=== PATIENT | male | born 1950 | race Caucasian/White ===

== ENCOUNTER → 2016-11-24 | Outpatient (CLI) | payer MEDICARE, OTHER ==
[~2016-11-24] MED LIST: ACCUPRIL PO; ALBUTEROL20 ml INH; AMLODIPINE BESYL5 MG PO; ASPIRIN PO; CRESTOR PO; FLOMAX0.4 M1 PO; GABAPENTIN300 M2 PO; HYDRALAZINE HC100 MG PO; LANTUS100 U/ML SUBQ; LASIX PO; NOVOLOG MI100 UNIT/1; OMEGA 3 1,0001 EACH PO; PRILOSEC PO; RANEXA500 MG PO
--- NOTE | ~2016-11-24 | CR63 ---
[facility] A Service of [facility] & [facility] [place] RADIOLOGY TEXT RESULTS PATIENT: ADAM OLIVA LOCATION: [facility] : 52 UNIT #: [id number] AGE: [address]: Edward Badillo MD SEX: M ORDER DR: [id number] [address] [address] [id number] O MR#: [id number] Acc #: [id number] NAME: ADAM OLIVA. : 1950 SEX: M STUDY DATE/TIME: 11/24/2016 1405 UNIT: [facility] ROOM: STUDY DESCRIPTION: CR Chest 2 View Attending Physician: Edward Badillo M.D. Referring Physician: Edward Badillo M.D. Ordering Physician: Edward Badillo M.D. Primary Care Physician: Edward Badillo M.D. MEDICAL IMAGING REPORT This report is preliminary unless electronic signature is present. EXAM Chest 2 views 11/24/2016 1405 hours HISTORY 66-year-old man with shortness of air for 2 weeks, swelling in lower legs. History of congestive heart failure. COMPARISON 08/28/2005 FINDINGS Upright PA and lateral views of the chest demonstrate median sternotomy change with mild cardiomegaly and a tortuous aorta. Heart size is slightly increased from 2005. There is pulmonary venous distension without definite edema. There is minimal patchy density along the left heart border. Atelectasis or scar is favored. No effusion seen. IMPRESSION 1. Median sternotomy change new from 2005 with very mild cardiomegaly and tortuous aorta. 2. There is minimal patchy density along the left heart border felt likely atelectasis or scar. This is new from 2005. There is no evidence of edema or effusion. 1. Dictated by... Julieta Handy M.D. THIS IS AN ELECTRONICALLY VERIFIED REPORT Julieta Handy M.D. at 11/25/2016 9:21 AM [place] TD: 11/24/2016 15:34 [facility] A Service of [facility] & [facility] [place] RADIOLOGY TEXT RESULTS PATIENT: ADAM OLIVA [id number] : [birth year] UNIT #: [id number] AGE: [address]: Edward Badillo MD SEX: M ORDER DR: TIERRA #: [id number] MEDICAL IMAGING REPORT Page 1 of 1
== END | disposition home or self-care (01) ==
LOC: SRAD 14:02
DX: R06.02 Shortness of breath (principal); M79.89 Other specified soft tissue disorders; I50.9 Heart failure, unspecified; I51.7 Cardiomegaly; I77.1 Stricture of artery; Z98.890 Other specified postprocedural states
CPT/HCPCS: 71020

== ENCOUNTER 2016-12-30 17:21 | Emergency (ER) | payer MEDICARE ==
--- NOTE | ~2016-12-30 | EKG ---
PATIENT: ADAM OLIVA UNIT #: [id number] Ventricular Rate: 82 BPM Atrial Rate: 82 BPM P-R Interval: 160 ms QRS Duration: 88 ms Q-T Interval: 392 ms QTC Calculation(Bezet): 457 ms P [place]: 62 degrees Calculated R [place]: -32 degrees Calculated T [place]: 169 degrees Diagnosis Line: Normal sinus rhythm Diagnosis Line: Left axis deviation Diagnosis Line: T wave abnormality, consider lateral ischemia Diagnosis Line: Abnormal ECG Diagnosis Line: No previous ECGs available Diagnosis Line: Confirmed by NATALI COOMBS MD ([id number]) on Diagnosis Line: 01/03/2017 8:35:53 AM INTERPRETING MD: MALVIN ZUÑIGA
--- NOTE | ~2016-12-30 | CT52 ---
[facility] A Service of [facility] RADIOLOGY TEXT RESULTS PATIENT: ADAM OLIVA LOCATION: SED : 52 UNIT #: [id number] AGE: [address]: Howie Javier MD SEX: M ORDER DR: [id number] [place] [address] [id number] E MR#: [id number] Acc #: [id number] NAME: ADAM OLIVA. : 1950 SEX: M STUDY DATE/TIME: 12/30/2016 19:40 UNIT: SED ROOM: STUDY DESCRIPTION: CT Cervical Spine Wo Cont Attending Physician: Howie Javier M.D. Ordering Physician: Juan Crocker M.D. Primary Care Physician: Edward Badillo M.D. MEDICAL IMAGING REPORT This report is preliminary unless electronic signature is present. EXAM CT cervical spine without contrast, 12/30/2016 HISTORY 66-year-old male with neck pain beginning today. No reported injury. COMPARISON None. TECHNIQUE Helical scan performed through the cervical spine without IV contrast. Coronal and sagittal reformatted images. This CT exam was performed with one or more of the following radiation dose reduction techniques: automatic exposure control, adjustment of mA and/or kV according to patient size, and iterative reconstruction. FINDINGS No evidence of acute fracture or subluxation. Vertebral body heights and alignment are normally maintained. Prevertebral soft tissues are normal. Atlantoaxial relationship is normal. Cervicothoracic junction is unremarkable. There is mild reversal of the normal cervical lordosis as the patient is positioned in the scanner. Mild multilevel degenerative disc changes and facet arthropathy. No significant bony canal stenosis. Paravertebral soft tissues are unremarkable. IMPRESSION 1. No acute cervical spine injury. 2. Mild reversal of the normal cervical lordosis as the patient is positioned in the scanner. 3. Mild multilevel degenerative disc changes and facet arthropathy. [facility] A Service of [facility] RADIOLOGY TEXT RESULTS PATIENT: ADAM OLIVA LOCATION: SED : 52 UNIT #: [id number] AGE: [address]: Howie Javier MD SEX: M ORDER DR: Dictated by... Godfrey Cazares M.D. THIS IS AN ELECTRONICALLY VERIFIED REPORT Godfrey Cazares M.D. at 12/31/2016 3:06 PM TONO/javier TD: 12/31/2016 04:48 JOB #: [id number] MEDICAL IMAGING REPORT Page 1 of 1
--- NOTE | ~2016-12-30 | CT71 ---
[facility] A Service of [facility] RADIOLOGY TEXT RESULTS PATIENT: ADAM OLIVA LOCATION: SED : 52 UNIT #: [id number] AGE: [address]: Howie Javier MD SEX: M ORDER DR: [id number] [place] [address] [id number] E MR#: [id number] Acc #: [id number] NAME: ADAM OLIVA. : 1950 SEX: M STUDY DATE/TIME: 12/30/2016 19:42 UNIT: SED ROOM: STUDY DESCRIPTION: CT Head Wo Contrast Attending Physician: Howie Javier M.D. Ordering Physician: Juan Crocker M.D. Primary Care Physician: Edward Badillo M.D. MEDICAL IMAGING REPORT This report is preliminary unless electronic signature is present. EXAM CT head without contrast, 12/30/2016 HISTORY 66-year-old male with headache beginning today. COMPARISON None. TECHNIQUE Routine unenhanced axial images performed through the brain. This CT exam was performed with one or more of the following radiation dose reduction techniques: automatic exposure control, adjustment of mA and/or kV according to patient size, and iterative reconstruction. FINDINGS No hemorrhage, acute infarction, or mass lesion. There is a well-circumscribed CSF attenuation collection along the central aspect of the posterior fossa which may represent a small arachnoid cyst. This is of doubtful clinical significance. No other abnormal extraaxial fluid collections. No midline shift or focal mass effect. Ventricular system is somewhat prominent compared to the degree of cortical atrophy. This raises possibility of a communicating or normal pressure hydrocephalus. There is mild chronic small vessel disease in the supratentorial white matter. and mild generalized atrophy. No acute bony abnormality. Visualized paranasal sinuses demonstrate mucosal thickening bilateral maxillary sinuses. Visualized mastoid air cells are clear. IMPRESSION 1. No acute intracranial abnormality. 2. Ventricular system is slightly prominent compared to the degree of STS. [facility] A Service of [facility] RADIOLOGY TEXT RESULTS PATIENT: ADAM OLIVA LOCATION: SED : 52 UNIT #: [id number] AGE: [address]: Howie Javier MD SEX: M ORDER DR: cortical atrophy, raising the possibility of a communicating or normal pressure hydrocephalus. 3. Small well-circumscribed CSF attenuation collection along the central aspect of the posterior fossa which may represent a small arachnoid cyst. This is of doubtful clinical significance. If further characterization is warranted, consider nonemergent brain MRI. 4. Mild generalized atrophy and chronic small vessel disease. 5. Mucosal thickening bilateral maxillary sinuses. Dictated by... Godfrey Cazares M.D. THIS IS AN ELECTRONICALLY VERIFIED REPORT Godfrey Cazares M.D. at 12/31/2016 3:06 PM TONO/javier TD: 12/31/2016 04:42 JOB #: [id number] MEDICAL IMAGING REPORT Page 1 of 1
[2016-12-30] MEDS ORDERED: ACCUPRIL PO (17:53)
[2016-12-30] MEDS ORDERED: CRESTOR PO (17:54)
[2016-12-30] MEDS ORDERED: AMLODIPINE BESYL5 MG PO (17:54)
[2016-12-30] MEDS ORDERED: RANEXA500 MG PO (17:54)
[2016-12-30] MEDS ORDERED: PRILOSEC PO (17:54)
[2016-12-30] MEDS ORDERED: FLOMAX0.4 M1 PO (17:54)
[2016-12-30] MEDS ORDERED: ALBUTEROL20 ml INH (17:55)
[2016-12-30] MEDS ORDERED: GABAPENTIN300 M2 PO (17:55)
[2016-12-30] MEDS ORDERED: ASPIRIN PO (17:55)
[2016-12-30] MEDS ORDERED: LASIX PO (17:55)
[2016-12-30] MEDS ORDERED: NOVOLOG MI100 UNIT/1 (18:28)
[2016-12-30] MEDS ORDERED: HYDRALAZINE HC100 MG PO (18:28)
[2016-12-30] MEDS ORDERED: LANTUS100 U/ML SUBQ (18:28)
[2016-12-30] MEDS ORDERED: OMEGA 3 1,0001 EACH PO (18:31)
[2016-12-30 18:33] LABS: BASOPHIL# 0.1 X10e3 (0-0.3); BASOPHIL% 0.8 % (0-2.5); EOSINOPHIL# 0.1 X10e3 (0-0.7); EOSINOPHIL% 1.1 % (0.0-7.0); HEMATOCRIT 39.9 % (38.0-50.0); HEMOGLOBIN 13.1 gm/dL (13.0-16.0); LYMPHOCYTE# 1.2 X10e3 (1.0-3.5); LYMPHOCYTE% 9.2 % (17.0-45.0); MEAN CELL VOLUME 83.4 FL (83-96); MEAN CORPUSCULAR HEMOGLOBIN 27.5 PG (28-34); MEAN CORPUSCULAR HGB CONC 32.9 g/dL (30-36); MEAN PLATELET VOLUME 9.5 FL (6.5-11.5); MONOCYTE# 0.6 X10e3 (0-1.0); MONOCYTE% 4.8 % (3.0-12.0); NEUTROPHIL% 84.1 % (40-75); PLATELET COUNT 284 X10e3 (140-420); RED BLOOD COUNT 4.79 X10e (3.90-5.60); RED CELL DISTRIBUTION WIDTH 14.2 % (11.0-15.5); WHITE BLOOD COUNT 13.1 X10e3 (4.0-10.5)
[2016-12-30 18:37] LABS: DIFF IND NO
[2016-12-30 18:53] LABS: ALBUMIN SERUM 3.1 g/dL (3.5-5.0); BILIRUBIN, DIRECT 0.1 mg/dL (0.0-0.2); BILIRUBIN,INDIRECT 0.4 mg/dL (0.0-0.9); BILIRUBIN,TOTAL 0.5 mg/dL (0.2-2.0); BUN/CREATININE RATIO 10.62; CALCIUM SERUM 8.9 mg/dL (8.4-10.2); CREATININE SERUM 1.6 mg/dL (0.6-1.4); GLOM FILT RATE Estimated 44.6 mL/min (>60); POTASSIUM 3.8 mmol/L (3.5-5.1); PROTEIN TOTAL SERUM 6.9 g/dL (6.0-8.3)
[2016-12-30 18:53] LABS: POC - CKMB 2.3 ng/mL (0.0-7.9); POC - TROPONIN <0.05 ng/mL (<=0.05)
[2016-12-30 19:29] LABS: URINE SOURCE CLEAN CATCH
[2016-12-30 19:31] LABS: URINE APPEARANCE CLEAR; URINE BILIRUBIN NEG (NEG); URINE BLOOD 1+ (NEG); URINE COLOR YELLOW; URINE GLUCOSE 100 MG/DL (NORM); URINE KETONE NEG (NEG); URINE LEUKOCYTE ESTERASE NEG (NEG); URINE NITRATE NEG (NEG); URINE PROTEIN 3+ (NEG); URINE UROBILINOGEN 0.2 MG/DL (NORM)
[2016-12-30 19:33] LABS: MICRO INDICATED? YES
[2016-12-30 19:37] LABS: CULTURE INDICATED? NO; URINE BACTERIA NEG (NEG)
[2016-12-30 19:38] LABS: URINE HYALINE CAST 0-2 /[HPF]; URINE MUCUS PRESENT; URINE SQUAMOUS EPITHELIAL CELL OCCAS /[HPF]; URINE TRANSITIONAL EPI CELLS FEW /[HPF]
[2016-12-30 20:12] LABS: POC - CKMB 1.3 ng/mL (0.0-7.9); POC - TROPONIN <0.05 ng/mL (<=0.05)
== END 2016-12-30 21:51 | disposition home or self-care (01) ==
LOC: SED 17:21
PROVIDERS: Emergency Medicine
DX: S00.03XA Contusion of scalp, initial encounter (principal); I48.91 Unspecified atrial fibrillation; I50.9 Heart failure, unspecified; I25.10 Atherosclerotic heart disease of native coronary artery without angina pectoris; E11.9 Type 2 diabetes mellitus without complications; Z88.0 Allergy status to penicillin; Z88.8 Allergy status to other drugs, medicaments and biological substances; Z79.899 Other long term (current) drug therapy; W18.30XA Fall on same level, unspecified, initial encounter
CPT/HCPCS: 70450; 72125; 80048; 80076; 81003; 82553; 84484; 85025; 93005; 99284